=== PATIENT | male | born 1940 ===

== ENCOUNTER 2018-01-19 07:51 | Day surgery (SDC) | payer MEDICARE, OTHER ==
[2018-01-10 08:46] VITALS: BMI 30.7
[~2018-01-19 07:51] MED LIST: Ciprofloxacin 0.3% OPTH SOLN OS SCH; Ketorolac Tromethamine 0.5% Opth Soln (3 ml) OS SCH; Lactated Ringer's 500 ML IV ONE; Phenylephrine 2.5% Opht Soln OS SCH; Tropicamide 0.5% Opht Sol OS SCH; acetaZOLAMIDE 500 mg SR Cap PO ONE
[2018-01-19] MEDS ORDERED: Tobramycin/Dexamethasone OPHT OINT ONE (08:11)
[2018-01-19] MEDS ORDERED: Povidone Iodine Ophthalmic 5% Soln ONE (08:11)
[2018-01-19] MEDS ORDERED: Carbachol 0.01% IO ONE (08:11)
[2018-01-19] MEDS ORDERED: Chondroitin/Hyaluronate Opth Syringe KIT (0.55 ml-0.5 ml) IO ONE (08:11)
[2018-01-19] MEDS ORDERED: Tetracaine 0.5% Ophth (OR ONLY) ONE (08:11)
[2018-01-19] MEDS ORDERED: Hyaluronidase Human, Recombi 150 U/ML VIAL ONE (08:12)
[2018-01-19] MEDS ORDERED: Ofloxacin 0.3% Ophth Soln OS SCH (08:15)
[2018-01-19] MEDS ORDERED: Lidocaine 2% MPF (5 ml) Inj ONE (08:16)
[2018-01-19] MEDS ORDERED: Lactated Ringer's 500 ML IV ONE (09:00)
[2018-01-19] MEDS ORDERED: Midazolam 2 MG/2 ML VIAL ONE (10:57)
[2018-01-19] MEDS ORDERED: acetaZOLAMIDE 500 mg SR Cap PO ONE (12:30)
[2018-01-19 12:50] VITALS: BP 118/61; PULSE 72; RESP 16; TEMP 97.5; O2SAT 99
--- NOTE | 2018-01-19 22:37 | OP ---
PROCEDURE DATE: 01/19/2018 PREOPERATIVE DIAGNOSIS: Cataract, left eye. POSTOPERATIVE DIAGNOSIS: Cataract, left eye. PROCEDURE: Phacoemulsification, left eye, insertion of posterior chamber implant. SURGEON: Clarke Gill MD CO-SURGEON: Tristen Carrion MD ANESTHESIA TYPE: Local IV sedation. DESCRIPTION OF PROCEDURE: The patient was brought into the operating room, placed in supine position, prepped and draped in the usual fashion for ophthalmic surgery. Lid speculum was inserted, lids and exposing globe. A side-port incision was made superiorly and inferiorly with a disposable sharp blade. Anterior chamber was filled with Viscoat. A near clear corneal incision was made temporally with a 2.75-mm keratome. Capsulorrhexis was then performed with Utrata forceps. Hydrodissection carried out with balanced salt solution. Nucleus was phacoemulsified. Remaining cortical fragments were removed with a split irrigation and aspiration system. The capsular sac was filled with Provisc. A posterior chamber lens was then injected into the capsular sac and rotated into horizontal position. Provisc was aspirated out of the anterior chamber. The pupil was constricted with Miochol. The wound was found to be watertight. Topical Betadine, Timoptic, and TobraDex ointment and pressure patch were applied. The patient tolerated the procedure well. Clarke Gill MD
== END 2018-01-19 12:52 | disposition home or self-care (01) ==
LOC: C.SDS 07:51
PROVIDERS: ATTEND Ophthalmology
DX: H25.12 Age-related nuclear cataract, left eye (principal)
CPT/HCPCS: 66984; J2250; J3010; J3470; J7120; V2632

== ENCOUNTER 2018-05-25 07:50 | Day surgery (SDC) | payer MEDICARE, OTHER ==
[2018-01-10 08:44] VITALS: BMI 30.7
[~2018-05-25 07:50] MED LIST changes: +Carbachol 0.01% IO ONE; +Chondroitin/Hyaluronate Opth Syringe KIT (0.55 ml-0.5 ml) IO ONE; +Ciprofloxacin 0.3% OPTH SOLN OD SCH; -Ciprofloxacin 0.3% OPTH SOLN OS SCH; +Hyaluronidase Human, Recombi 150 U/ML VIAL ONE; +Ketorolac Tromethamine 0.5% Opth Soln (3 ml) OD SCH; -Ketorolac Tromethamine 0.5% Opth Soln (3 ml) OS SCH; +Lidocaine 2% MPF (5 ml) Inj ONE; +Phenylephrine 2.5% Opht Soln OD SCH; -Phenylephrine 2.5% Opht Soln OS SCH; +Povidone Iodine Ophthalmic 5% Soln ONE; +Tobramycin/Dexamethasone OPHT OINT ONE; +Tropicamide 0.5% Opht Sol OD SCH; -Tropicamide 0.5% Opht Sol OS SCH
[2018-05-25] MEDS ORDERED: Povidone Iodine Ophthalmic 5% Soln ONE (07:53)
[2018-05-25] MEDS ORDERED: Hyaluronidase Human, Recombi 150 U/ML VIAL ONE (07:54)
[2018-05-25] MEDS ORDERED: Tetracaine 0.5% Ophth (OR ONLY) ONE (07:54)
[2018-05-25] MEDS ORDERED: Chondroitin/Hyaluronate Opth Syringe KIT (0.55 ml-0.5 ml) IO ONE (07:54)
[2018-05-25] MEDS ORDERED: Tobramycin/Dexamethasone OPHT OINT ONE (07:55)
[2018-05-25] MEDS ORDERED: Lactated Ringer's 500 ML IV ONE (09:00)
[2018-05-25 10:08] VITALS: PULSE 60; RESP 18
[2018-05-25] MEDS ORDERED: Carbachol 0.01% IO ONE (11:10)
[2018-05-25] MEDS ORDERED: Lidocaine 2% MPF (5 ml) Inj ONE (11:11)
[2018-05-25 12:32] VITALS: BP 116/59; TEMP 97; O2SAT 100
--- NOTE | 2018-05-25 16:36 | OP ---
PROCEDURE DATE: 05/25/2018 PREOPERATIVE DIAGNOSIS: Mature cataract, right eye. POSTOPERATIVE DIAGNOSIS: Mature cataract, right eye. OPERATIVE PROCEDURE: Phacoemulsification, right eye, insertion of posterior chamber lens implant. SURGEON: Clarke Gill MD CO-SURGEON: Tristen Carrion MD. ANESTHESIA TYPE: Local intravenous sedation. ANESTHESIOLOGIST: . PROCEDURE: The patient was brought into the operating room, placed in supine position, prepped and draped in the usual fashion for ophthalmic surgery. Lid speculum was inserted, lids and exposing globe. A side-port incision was made superiorly and inferiorly with a disposable sharp blade. Anterior chamber was filled with Viscoat. A near clear corneal incision was made temporally with a 2.75-mm keratome. Capsulorrhexis was then performed with Utrata forceps. Hydrodissection carried out with balanced salt solution. Nucleus was phacoemulsified. Remaining cortical fragments were removed with a split irrigation and aspiration system. The capsular sac was filled with Provisc. A posterior chamber lens was then injected into the capsular sac and rotated into horizontal position. Provisc was aspirated out of the anterior chamber. The pupil was constricted with Miochol. The wound was found to be watertight. Topical Betadine, Timoptic, and TobraDex ointment and pressure patch were applied. The patient tolerated the procedure well. Clarke Gill MD
== END 2018-05-25 12:56 | disposition home or self-care (01) ==
LOC: C.SDS 07:50
PROVIDERS: ATTEND Ophthalmology
DX: H25.11 Age-related nuclear cataract, right eye (principal)
CPT/HCPCS: 66984; J3010; J3470; J7120; V2632